=== PATIENT | female | born 2000 | race Caucasian/White ===

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

== ENCOUNTER 2019-03-13 11:04 | Day surgery (SDC) | payer OTHER ==
[2019-03-13 11:38] VITALS: BP 130/80; TEMP 98.8; BMI 30.9
[2019-03-13] MEDS ORDERED: hydrALAZINE 20 MG/ML VIAL SLOW IVP PRN (12:00)
[2019-03-13] MEDS ORDERED: Sodium Chloride 0.9% 2,000 ML IV SCH (12:15)
[2019-03-13 13:43] LABS: Anion Gap 10 mmol/L (10-20); BUN (Urea Nitrogen) 7 mg/dL (7.0-18.7); Calc. Creatinine Clearance 209 mL/min (70-130); Calcium 7.7 mg/dL (7.8-10.44); Carbon Dioxide 24 mmol/L (22-29); Chloride 107 mmol/L (98-107); Estimated GFR-MDRD Greater than 90; Glucose 67 mg/dL (70-105); Potassium 3.8 mmol/L (3.5-5.1); Sodium 137 mmol/L (136-145)
--- NOTE | 2019-03-13 23:54 | PRG ---
DATE OF SERVICE: 03/13/2019 PRIMARY OB: Ms. Vielka Porter. CHIEF COMPLAINT: Dizziness, lightheadedness, palpitations. HISTORY OF PRESENT ILLNESS: The patient is a 18-year-old G2, P1 female with an intrauterine at 28 weeks and 6 days, presenting with a 1-day history of palpitations with lightheadedness and nausea. She reports that today she has been feeling very dizzy when she gets up to walk around and feels like her heart is racing. This improves when she sits down and rests and then when she is up moving about again, she began having feeling these symptoms again. The patient reports that she has had some vomiting and diarrhea last night and has had really nothing to eat since then. She has had some crackers and very little fluid. The patient denies any history of heart problems or previous symptoms such as this. She denies any fever. She denies any falls. She denies any headache, chest pain, or shortness of breath. Denies any constipation or any diarrhea today. She denies any new rashes, hip problems, knee problems, or muscle weakness. Denies vaginal bleeding or leakage of fluid. Denies urinary urgency or frequency. PAST MEDICAL HISTORY: Negative. PAST SURGICAL HISTORY: She has had 1 prior . ALLERGIES: LATEX. OB LABORATORY DATA: Unavailable at time of dictation. SOCIAL HISTORY: Denies drug, alcohol, or tobacco use. REVIEW OF SYSTEMS: Per HPI. PHYSICAL EXAMINATION: VITAL SIGNS: Blood pressure 130/80, respiratory rate of 18, pulse of 110s to 120s, saturating 98% to 100% on room air, respiratory rate of 18. GENERAL: Lying in the bed. She does not appear to be in any acute distress. She is alert, oriented, cooperative, and pleasant to interact with. HEAD: Normocephalic, atraumatic. LUNGS: Clear to auscultation bilaterally. HEART: Tachycardic, but regular rhythm. ABDOMEN: Gravid and soft. EXTREMITIES: Nontender and nonedematous. : Has been deferred. heart tracing shows the fetus with a baseline in the 130s with moderate long-term variability, positive 15 x 15 accelerations. Tocometer shows no contractions. LABORATORY DATA: Sodium of 137, potassium of 3.8, chloride of 107, BUN is 7, creatinine 0.59, calcium 7.7. EKG shows normal sinus rhythm with a heart rate of 89 at the time it was taken. The patient has been given 2 L of IV fluids during her stay, which brought her vital signs back to more normal levels. Heart rates in the 80 to 90s range, saturating 100% on room air. On re-evaluation, the patient felt much better. She is able to ambulate without any feeling of dizziness or palpitations. ASSESSMENT AND PLAN: The patient is a 18-year-old G2, P1 female with an intrauterine at 28 weeks and 6 days with dehydration, symptomatic with dizziness and tachycardia. This all resolved with IV fluids. The patient has been given instructions to continue to keep herself well hydrated and needs to follow up with her primary OB in the next week. The patient has also been counseled should she have recurrent palpitations or recurrent symptoms to let her primary OB, Ms. Vielka Porter know. Fetus has a category 1 tracing and reactive NST. The patient was discharged home with labor precautions. Job ID: [id number]
== END 2019-03-13 15:00 | disposition home health service (06) ==
LOC: L&D/OP 11:04
PROVIDERS: ATTEND Advanced Practice Midwife
DX: O99.283 Endocrine, nutritional and metabolic diseases complicating pregnancy, third trimester (principal); E86.0 Dehydration; O99.89 Other specified diseases and conditions complicating pregnancy, childbirth and the puerperium; R42 Dizziness and giddiness; R00.0 Tachycardia, unspecified; O34.219 Maternal care for unspecified type scar from previous cesarean delivery; Z3A.28 28 weeks gestation of pregnancy; Z91.040 Latex allergy status
CPT/HCPCS: 36415; 80048; 93005; 93010; 96360; 96361; 99283

== ENCOUNTER 2019-05-19 06:30 | Day surgery (SDC) | payer OTHER ==
[2019-05-19 07:44] VITALS: BMI 31.8
--- NOTE | 2019-05-19 08:26 | PRG ---
DATE OF SERVICE: 05/19/2019 PRIMARY OB: Vielka Porter CNM CHIEF COMPLAINT: Abdominal pain. HISTORY OF PRESENT ILLNESS: The patient is a 19-year-old G2, P1 female with an intrauterine at 38 weeks and 3 days, presenting with increasing uterine contractions since early this morning. She reports that she feels some about every 4 to 5 minutes. The patient denies any vaginal bleeding or leakage of fluid. She denies any complications with this . Denies any falls, fever, cough, headache, chest pain, shortness of breath. She did have an episode of vomiting this morning. She reports associated with the pain she is having. Denies diarrhea or constipation. Denies any new rashes, hip problems, knee problems, muscle weakness, vaginal bleeding, leakage of fluid. PAST MEDICAL HISTORY: Negative. PAST SURGICAL HISTORY: One prior . ALLERGIES: LATEX. MEDICATIONS: vitamins. SOCIAL HISTORY: Denies any drug, alcohol, tobacco use during this . Does have a history of tobacco and alcohol consumption. OB LABS: Blood type is A positive. Antibody screen is negative. Hepatitis B surface antigen is negative. HIV is nonreactive. She is rubella immune. Diabetes screen, 1 hour screen is 68. Third trimester VDRL is nonreactive. REVIEW OF SYSTEMS: Per HPI. PHYSICAL EXAMINATION: VITAL SIGNS: Blood pressure is 118/86, heart rate of 98, saturating 100% on room air, respiratory rate 18. GENERAL: She appears to be in no acute distress. She is alert, oriented, cooperative, and pleasant to interact with. HEAD: Normocephalic, atraumatic. LUNGS: Clear to auscultation bilaterally. HEART: Regular rate and rhythm. ABDOMEN: Gravid, soft, nontender to palpation. EXTREMITIES: Nontender, nonedematous. : Per nursing staff. CERVICAL: 1/2, 80 and -1 station. heart tracing shows the fetus with a baseline in the 130s with moderate long-term variability, positive 15 x 15 accelerations, no decelerations. Contractions, she is having irregular contractions with some evidence of about 4 to 6 minutes apart with irritability in between. ASSESSMENT AND PLAN: The patient is a 19-year-old female with a history of prior section x1, desiring trial of labor after , presenting with uterine contractions. The patient has no clear evidence at this time of labor. However, she does have effacement of her cervix and irregular contractions on the monitor. The patient will be sent walking for the next 2-3 hours and then will be reexamined and disposition will be made at that time. Fetus has a category 1 tracing, reactive NST. Care is being transferred over to Dr. De Los Santos, the oncoming physician. Job ID: [id number]
[2019-05-19] MEDS ORDERED: hydrALAZINE 20 MG/ML VIAL SLOW IVP PRN (10:42)
--- NOTE | 2019-05-19 10:45 | PDOC.BPN ---
- Brief Progress Note Patient returned from walking. No change in cervical exam. status reassuring. D/c home to follow up as scheduled with Michelle Porter.
== END 2019-05-19 10:56 | disposition home health service (06) ==
LOC: L&D/OP 06:30
PROVIDERS: ATTEND Obstetrics & Gynecology
DX: O47.1 False labor at or after 37 completed weeks of gestation (principal); O34.219 Maternal care for unspecified type scar from previous cesarean delivery; Z3A.38 38 weeks gestation of pregnancy; Z91.040 Latex allergy status
CPT/HCPCS: 99283

== ENCOUNTER 2019-05-20 02:26 | Inpatient (IN) | payer OTHER ==
[2019-05-20 02:58] VITALS: BMI 31.8
[2019-05-20] MEDS ORDERED: hydrALAZINE 20 MG/ML VIAL SLOW IVP PRN ×3 (03:24→12:20)
[2019-05-20] MEDS ORDERED: Ondansetron PF 4 MG/2 ML Vial IVP PRN ×4 (03:25→12:20)
[2019-05-20] MEDS ORDERED: Butorphanol Tartrate 1 MG/ML VIAL ONE (03:26)
[2019-05-20] MEDS ORDERED: Ondansetron PF 4 MG/2 ML Vial ONE (03:26)
--- NOTE | 2019-05-20 04:05 | PDOC.FPROB ---
FMR OB H&P: HPI - History of Present Illness Chief Complaint: painful contractions Indentification: 19 yo @ 38.4 weeks History of Present Illness: 19 yo @ 38.4 presents for painful contractions occurring every 5 minutes. Pt also reports associated nausea and vomiting. Was seen yesterday for similar symptoms and reports increasingly stronger and more frequent contractions since discharge. Reports some blood y mucoid discharge later last night without continued dc or LOF. No vaginal bleeding. Pos fm, perceived as decreased from normal movement. Office History unavailable for review, pregnacy history obtained from previous H /P. Primary Care Physician: Celia Porter FMR OB H&P: Current - Care : 2 Para: 1 Gestational age: 38.4 - OB Labs Blood type: A RH: positive Antibody Screen: negative HIV: negative RPR: negative HepBsAg: negative Rubella: immune Quad screen: unknown 1 hour gtt: 68 FMR OB H&P: History - Past Medical History PMH: Denies - Surgical History Sx History: CSX1 - Social History Social History: Denies alcohol tobacco and drug use FMR OB H&P: Medications - Current Home Medications: Medication Instructions Recorded Confirmed Type Vitamin 1 tab PO DAILY tab 07/01/17 05/20/19 Rx Allergies/Adverse Reactions: Allergies Allergy/AdvReac Type Severity Reaction Status Date / Time latex Allergy Mild Rash Verified 03/13/19 11:38 FMR OB H&P: ROS - Review of Systems General: denies: fever/chills Eyes: denies: vision changes, double vision Cardiovascular: denies: chest pain Respiratory: denies: shortness of breath Gastrointestinal: reports: cramping, nausea, vomiting Genitourinary (Female): reports: contractions. denies: dysuria, vaginal discharge Neurologic: denies: numbness, weakness Hematologic/Lymphatic: denies: prolonged or excessive bleeding FMR OB H&P: Vital Signs - Maternal Vital signs: 118/86 - Heart Tones Baseline: 150 Variability: moderate Acceleration: present Category: category 1 [place] contractions every: 3-5 Min FMR OB H&P: Physical Exam - Physical Exam General: NAD, awake, alert and oriented HEENT: normocephalic and atraumatic, PERRLA, EOMI, conjunctiva clear Neck: trachea midline Heart: RRR, normal S1/S2, no murmurs/rubs/gallops, no edema General: CTAB, no respiratory distress, good air movement, no rales/rhonchi, no wheezing Abdomen: soft, gravid, non-tender Neurological: no focal deficit Skin: no rash Psychiatric: normal mood and affect - Pelvic Exam SVE: 380/-3 Estimated Weight: 6 lbs FMR OB H&P: A/P - Problem List (1) Term Current Visit: Yes Status: Acute Code(s): Z34.90 - ENCNTR FOR SUPRVSN OF NORMAL , UNSP, UNSP TRIMESTER Disposition: 19 yo @ 38.4 presents for painful contraction worsening in severity and frequency 1) TIUP: - will give stadol and zofran prn for pain - continuous EFM - recheck cervix in 2 hours - currently 380/-3 from 1.5/80/-3 on yesterdays visit - cat one strip, cont monitoring 2) Prior CS, wants TOLAC: - counseled by provider regarding risks including uterine rupture - aware, cont current plan of care Discussion: Date/Time: 05/20/19 0404 This H&P was discussed with Dr. De Los Santos who agrees with the above documentation and plan. Addendum - Attending - Attending Attestation Date/Time: 05/20/19 7430 I personally evaluated the patient and discussed the management with Dr. Pack. I agree with the History, Examination, Assessment and Plan documented above.
[2019-05-20] MEDS ORDERED: Lidocaine 1% (PF) 30 ML VIAL SC PRN (05:02)
[2019-05-20] MEDS ORDERED: Ibuprofen 800 MG TAB PO PRN (05:02)
[2019-05-20] MEDS ORDERED: Promethazine HCl 25 MG/ML VIAL IM PRN ×2 (05:02→06:31)
[2019-05-20] MEDS ORDERED: NS w/ Oxytocin 10 units 500 ML IV SCH (05:15)
[2019-05-20] MEDS ORDERED: Lactated Ringer's 1,000 ML IV SCH (05:15)
[2019-05-20 05:27] LABS: Hemoglobin 11.9 g/dL (12.0-16.0); Mean Corpuscular HGB CONC 33.4 g/dL (32.0-36.0); Mean Corpuscular Hemoglobin 29.1 pg (27.0-31.0); Mean Corpuscular Volume 87.1 fL (78.0-98.0); Mean Platelet Volume 7.1 fL (7.4-10.4); Platelet Count 200 thou/uL (130-400); RBC Distribution Width 12.3 % (11.5-14.5); Red Blood Cell (RBC) Count 4.07 mill/uL (4.20-5.40); White Blood Cell (WBC) Count 11.3 thou/uL (4.8-10.8)
[2019-05-20] MEDS ORDERED: Fentanyl 4 mcg/Bup 0.1% Cadd 100 ML ONE (05:28)
[2019-05-20] MEDS ORDERED: Fentanyl 100 MCG/2 ML VIAL ONE (05:41)
[2019-05-20] MEDS ORDERED: Lidocaine 1.5%/Epinephrine 1:200,000 5 ML AMPUL IJ ONE (05:41)
[2019-05-20 06:07] LABS: Syphilis Antibody Nonreactive (Nonreactive); Syphilis Antibody Index 0.03 S/CO (<1.00 Non-Reactive)
[2019-05-20 06:08] LABS: HBSAg Index 0.41 S/CO (0-0.99); Hep B Surf Ag Non-Reactive S/CO (NonReactive)
[2019-05-20] MEDS ORDERED: diphenhydrAMINE 50 MG/ML VIAL IVP PRN (06:31)
[2019-05-20] MEDS ORDERED: Lactated Ringer's 500 ML IV PRN (06:31)
[2019-05-20] MEDS ORDERED: Naloxone HCl 0.4 mg/ml Vial IVP PRN ×2 (06:31)
[2019-05-20] MEDS ORDERED: ePHEDrine/0.9% NaCl/PF SYRINGE 50 mg/10 ml SLOW IVP PRN (06:31)
[2019-05-20] MEDS ORDERED: Acetaminophen 325 MG TAB PO PRN (06:31)
[2019-05-20] MEDS ORDERED: Communication Order-Pharmacy FS SCH (06:45)
[2019-05-20] MEDS ORDERED: Fentanyl 4 mcg/Bupivacaine 0.1% Cassette 100 ML EPIDURAL SCH (06:45)
--- NOTE | 2019-05-20 09:02 | PRG ---
DATE OF SERVICE: 05/20/2019 LABOR EVALUATION TIME OF INTERVENTION: Roughly 08:45. In brief, this is a patient of Vielka Porter, who is here with the patient. I evaluated the patient at bedside at the request of Vielka Porter for deep variable decelerations as the patient was nearing second stage. She is a TOLAC patient. Per Vielka Porter's exam about 5 minutes ago, the patient is now complete-complete and +2, and we will begin pushing effort. I reviewed the strip and it is category with moderate variability, but variable decelerations present. The rate is normal. I am at bedside and will assist/be present for assisted operative vaginal delivery, if necessary. I have discussed this with the patient and her family members. I do not suspect any immediate jeopardy at this time, but we are watching the strip closely. Job ID: [id number]
[2019-05-20] MEDS: NS / Oxytocin 40 units/1000ml 1,000 ML IV PRN ×2 (09:06→12:09)
--- NOTE | 2019-05-20 09:11 | PDOC.OPDEL ---
OB Operative/Delivery Note Delivery Dr/Surgeon: Celia Porter Assist: Reed Pre-Delivery Diagnosis: active labor Procedure/Post Delivery Dx: vaginal delivery after CS Weeks gestation: 39 Anesthesia: epidural - Additional Findings/Plan Placenta delivered: spontaneous Repaired Obstetrical Laceration: none Estimated blood loss: 250mL Compilations/Other Findings: FHT decles, OB hospitalist notified and at bedside. Delivery immanent. Post delivery plan: routine recovery
[2019-05-20 09:28] LABS: Actual Bicarbonate (HCO3v) 25 mEq/L (22-28); Base Excess -2.4 mEq/L (-2.0 to +3.0)
[2019-05-20 09:30] LABS: Actual Bicarbonate (HCO3a) 23.8 mEq/L (22-28); Base Excess (BEa) -3.7 mEq/L (-2.0 to +3.0)
[2019-05-20] MEDS ORDERED: Bupivacaine/Epinephrine 0.25% 30 ML VIAL ONE (09:32)
[2019-05-20] MEDS ORDERED: ePHEDrine/0.9% NaCl/PF SYRINGE 50 mg/10 ml ONE (09:32)
[2019-05-20] MEDS ORDERED: NS / Oxytocin 40 units/1000ml 1,000 ML IV SCH (12:20)
[2019-05-20] MEDS ORDERED: Misoprostol 200 MCG TAB VAG PRN (12:20)
[2019-05-20] MEDS ORDERED: Methylergonovine 0.2 MG/ML VIAL IM PRN (12:20)
[2019-05-20] MEDS ORDERED: HYDROcodone/Acetaminophen 5/325 mg Tablet PO PRN ×2 (12:20)
[2019-05-20] MEDS ORDERED: Benzocaine-Menthol 82.5 ML CAN TOP PRN (12:20)
[2019-05-20] MEDS ORDERED: Bisacodyl 10 MG SUPP PR PRN (12:20)
[2019-05-20] MEDS ORDERED: Milk Of Magnesia 30 ML UDCUP PO PRN (12:20)
[2019-05-20] MEDS: Butorphanol Tartrate 1 MG/ML VIAL SLOW IVP SCH ×2 (12:48→12:49)
[2019-05-20] MEDS: Ibuprofen 800 MG TAB PO SCH ×2 (12:55→21:57)
[2019-05-20] MEDS: Ferrous Sulfate 325 MG TAB PO SCH (18:06)
[2019-05-20] MEDS: Docusate Calcium (SURFAK) 240 MG CAP PO SCH (21:57)
[2019-05-21] MEDS: Ibuprofen 800 MG TAB PO SCH ×2 (06:05→14:21)
--- NOTE | 2019-05-21 06:46 | PDOC.PP ---
Post Progress Note Post Day #: 1 Subjective: Doing well PO intake tolerated: yes Flatus: yes Ambulation: yes Vital Signs (12 hours) Temp Pulse Resp BP Pulse Ox 05/21/19 04:00 98.2 F 81 14 114/66 97 05/21/19 00:20 98.5 F 86 14 103/54 L 98 05/20/19 20:04 98.2 F 98 16 126/69 98 Weight Weight 197 lb - Physical Examination General: NAD Abdominal: lochia, no distention, appropriately TTP Extremities: negative homans (B) Neurological: no gross focal deficits Psychiatric: A&Ox3, normal affect Result Diagrams: 05/20/19 05:16 Additional Labs: Post Labs Blood Type A POSITIVE 05/20/19 05:16 Hep Bs Antigen Non-Reactive S/CO (NonReactive) 05/20/19 05:16 (1) Term Code(s): Z34.90 - ENCNTR FOR SUPRVSN OF NORMAL , UNSP, UNSP TRIMESTER Status: Acute (2) , delivered Code(s): O34.219 - MATERNAL CARE FOR UNSP TYPE SCAR FROM PREVIOUS DEL Status: Acute - Assessment/Plan PPD1...ok for DC to home this PM. Motrin given as RX Routine follow up
[2019-05-21] MEDS: Ferrous Sulfate 325 MG TAB PO SCH (08:49)
[2019-05-21 08:59] VITALS: BP 111/69; TEMP 97.9
[2019-05-21] MEDS ORDERED: Adacel (T-DAP) 0.5 ML SYRINGE IM ONE (09:00)
[2019-05-21] MEDS: Docusate Calcium (SURFAK) 240 MG CAP PO SCH (09:37)
== END 2019-05-21 14:40 | disposition home or self-care (01) | DRG 807 ==
LOC: L&D/OP 02:26 → L&D 05:02 → 3SW 12:30
PROVIDERS: ADMIT Obstetrics & Gynecology; ATTEND Obstetrics & Gynecology
PROC: 10E0XZZ Delivery of Products of Conception, External Approach (ICD-10-PCS; principal; 2019-05-20)
DX: O34.219 Maternal care for unspecified type scar from previous cesarean delivery (principal); Z37.0 Single live birth; Z3A.38 38 weeks gestation of pregnancy; O76 Abnormality in fetal heart rate and rhythm complicating labor and delivery
CPT/HCPCS: 36415; 51702; 82805; 85027; 86780; 86850; 86900; 86901; 87340; 99283; 99285; J0595; J2405; J3010; J3490